=== PATIENT | female | born 1975 | race Asian ===

== ENCOUNTER 2017-03-11 23:30 | Inpatient (IN) | payer BC ==
[~2017-03-11] VITALS: Ht 152.4 cm; Wt 60.5 kg
[~2017-03-11 23:30] MED LIST: FERR325C PO; PREN-39 PO
[2017-03-11 23:57] VITALS: Ht 152.4 cm; Wt 60.5 kg
[2017-03-11 23:58] VITALS: BP 117/71; PULSE 96; RESP 18
[2017-03-12] MEDS ORDERED: LACTATED RINGER'S 1,000 ML IV PRN
[2017-03-12] MEDS ORDERED: OXYTOCIN 30 UNITS/LR 500 ML IV SCH ×3 (00:30→08:30)
[2017-03-12] MEDS ORDERED: LIDOCAINE 1% (MPF) 30 ML INJ INJ PRN (00:30)
[2017-03-12] MEDS ORDERED: CARBOPROST 250 MCG INJ IM PRN ×2 (00:30→11:30)
[2017-03-12] MEDS ORDERED: BUTORPHANOL 2 MG INJ IV PRN ×2 (00:30)
[2017-03-12] MEDS ORDERED: MISOPROSTOL 200 MCG TAB PR PRN ×2 (00:30→11:30)
[2017-03-12] MEDS ORDERED: ACETAMINOPHEN/CODEINE #3 TAB PO PRN (00:30)
[2017-03-12] MEDS ORDERED: OXYTOCIN 30 UNITS/LR 500 ML IV PRN ×2 (00:30→11:30)
[2017-03-12] MEDS ORDERED: METHYLERGONOVINE 0.2 MG INJ IM PRN ×2 (00:30→11:30)
[2017-03-12] MEDS ORDERED: IBUPROFEN 600 MG TAB PO PRN (00:30)
[2017-03-12 00:45] VITALS: BP 107/68; PULSE 81; RESP 18
[2017-03-12] MEDS: LACTATED RINGER'S 1,000 ML IV SCH ×2 (00:48→08:31)
[2017-03-12] MEDS ORDERED: CLINDAMYCIN 900 MG/D5W (PMX) 50 ML IVPB ONE (00:53)
[2017-03-12 00:54] LABS: ADD SCAN DIFF NO
[2017-03-12 00:56] LABS: BASOPHILS % 0.3 % (0.0-2.0); EOSINOPHILS # 0.1 10^3/ul (0.0-0.5); EOSINOPHILS % 1.1 % (0.0-7.0); HEMOGLOBIN 11.4 g/dl (12.0-16.0); LYMPHOCYTES # 1.8 10^3/ul (0.8-2.9); LYMPHOCYTES % 16.3 % (15.0-51.0); MEAN CORPUSCULAR HEMOGLOBIN 27.9 pg (29.0-33.0); MEAN CORPUSCULAR HGB CONC 32.6 g/dl (32.0-37.0); MEAN CORPUSCULAR VOLUME 85.6 fl (82.0-101.0); MONOCYTE # 0.9 10^3/ul (0.3-0.9); MONOCYTES % 8.3 % (0.0-11.0); NEUTROPHIL # 8.1 10^3/ul (1.6-7.5); NEUTROPHILS % 72.7 % (39.0-77.0); PLATELET COUNT 241 10^3/UL (140-415); RED BLOOD COUNT 4.09 10^6/ul (4.20-5.40); RED CELL DISTRIBUTION WIDTH 15.8 % (11.5-14.5); WHITE BLOOD COUNT 11.1 10^3/ul (4.8-10.8)
[2017-03-12 01:01] LABS: ADD UMIC YES; UR ASCORBIC ACID NEGATIVE (NEGATIVE); UR BILIRUBIN (Dip) NEGATIVE (NEGATIVE); UR BLOOD (Dip) 1+ mg/dL (NEGATIVE); UR CLARITY CLEAR (CLEAR); UR COLOR COLORLESS (YELLOW); UR GLUCOSE (Dip) NEGATIVE (NEGATIVE); UR KETONES (Dip) NEGATIVE (NEGATIVE); UR LEUKOCYTE ESTERASE (Dip) NEGATIVE Leu/ul (NEGATIVE); UR NITRITE (Dip) NEGATIVE (NEGATIVE); UR RBC 0 /HPF (0-5); UR SPECIFIC GRAVITY (Dip) 1.004 (1.003-1.030); UR TOTAL PROTEIN (Dip) NEGATIVE (NEGATIVE); UR UROBILINOGEN (Dip) NEGATIVE (NEGATIVE)
--- NOTE | 2017-03-12 01:08 | TRIAGE ---
OB Triage Datetime Report Generated by CPN: 03/12/2017 01:07 Datetime: 03/12/2017 01:02 Assessment Type: Admission Assessment Vaginal Bleeding: None Maternal Assessment Level of Consciousness: Fully Conscious DTR's/Clonus: DTRs 2+; No Clonus Headache: Denies Blurred Vision: No Respiratory Effort: Unlabored; Regular Rhythm; Equal Expansion Breath Sounds, Left: Clear and Equal Breath Sounds, Right: Clear and Equal Nausea/Vomiting: Denies RUQ Epigastric Pain: Denies Lower Extremities Edema: None Degree: None Upper Extremities Edema: None Degree: None Facial Edema: None Fall Risk Assessment History of Falling: (0) No Secondary Diagnosis: (0) No Ambulatory Aid: (0) Bedrest/Nurse Assist IV Therapy: (20) Yes Gait: (0) Normal/Bedrest/Immobile Mental Status: (0) Oriented to Own Ability Fall Score: 20 Fall Risk Score Definition: No Risk: No action required Labor Evaluation Frequency: 1-4 Duration (sec)2399: 60-180 Quality: Moderate Pattern: Normal: <= 5 Contractions in 10 Minutes Resting Tone [place]: Relaxed Heart Rate FHR Baseline Rate: 135 Variability: Moderate 6-25 bpm Accelerations: 15X15 Decelerations: None Category: Category I Pain Assessment Pain Scale: 7 Pain Presence: Intermittent Pain Type: Contraction Pain Location: Abdomen Pain Goal: 4 Membrane Status: Ruptured Membranes Ruptured Date/Time: 03/11/2017 21:30 Membranes Rupture Method: Spontaneous Amniotic Fluid Color: Clear Amniotic Fluid Amount: Small Amniotic Fluid Odor: None Datetime: 03/12/2017 00:35 Time of Arrival: 03/12/2017 00:35 EGA: 39.6 Arrived By: Wheelchair Arrived From: TRIAGE Datetime: 03/12/2017 00:28 Labor Evaluation Frequency: 0 Monitor Mode: External Heart Rate FHR Baseline Rate: 145 Monitor Mode: External US FHR Baseline Changes: No Baseline Change Variability: Moderate 6-25 bpm Accelerations: 15X15 Decelerations: None Category: Category I Datetime: 03/12/2017 00:20 Stage of : OB Triage Datetime: 03/11/2017 23:53 Stage of : OB Triage Time of Arrival: 03/11/2017 23:31 EGA: 39.5 Arrived By: Wheelchair Arrived From: Home Chief Complaint: ROM Movement: Present Contractions: Regular Time Contractions Began: 03/11/2017 21:30 Rupture of Membranes: Ruptured Vaginal Bleeding: None Vaginal Discharge: Present Recent Sexual Intercouse: Denies Abdominal Trauma: Not Applicable Patient Complaints: None Time Provider Notified: 03/11/2017 00:00 Provider Notified: DR ELMORE Initial Plan: CALL MD EFM Maternal Assessment Level of Consciousness: Fully Conscious DTR's/Clonus: DTRs 2+; No Clonus Headache: Denies Blurred Vision: No Respiratory Effort: Unlabored; Regular Rhythm; Equal Expansion Breath Sounds, Left: Clear and Equal Breath Sounds, Right: Clear and Equal Nausea/Vomiting: Denies RUQ Epigastric Pain: Denies Lower Extremities Edema: None Degree: None Upper Extremities Edema: None Degree: None Facial Edema: None Temperature Route: Oral Fall Risk Assessment History of Falling: (0) No Secondary Diagnosis: (0) No Ambulatory Aid: (0) Bedrest/Nurse Assist IV Therapy: (0) No Gait: (0) Normal/Bedrest/Immobile Mental Status: (0) Oriented to Own Ability Fall Score: 0 Fall Risk Score Definition: No Risk: No action required Monitor Mode: External Monitor Mode: External US Pain Assessment Pain Scale: 6 Pain Presence: Intermittent Pain Type: Contraction Pain Location: Abdomen; Back Datetime: 03/11/2017 23:38 Vaginal Exam Dilatation (cms): 4.0 Effacement (%): 70 Station: -3 Exam By: Ni BOOGIE RN Vaginal Bleeding: None Cervix, Consistency: Firm Cervix, Position: Posterior Presentation 'A': Cephalic Datetime: 03/07/2017 23:33 EGA: 39.1 Membranes Ruptured Date/Time: 03/11/2017 21:30 Amniotic Fluid Color: Clear Amniotic Fluid Amount: Moderate Amniotic Fluid Odor: None Datetime: 03/07/2017 22:53 Fall Score: 0 Fall Risk Score Definition: No Risk: No action required
[2017-03-12 01:18] LABS: INR 0.91; PROTIME 12.2 Sec (12.2-14.2)
[2017-03-12 01:19] LABS: PARTIAL THROMBOPLASTIN TIME 29.1 Sec (25.0-35.0)
[2017-03-12 01:22] LABS: ALANINE AMINOTRANSFERASE 19 IU/L (13-69); ALBUMIN 3.6 g/dl (3.3-4.9); ALKALINE PHOSPHATASE 168 IU/L (42-121); ANION GAP 19 (8-16); ASPARTATE AMINO TRANSFERASE 17 IU/L (15-46); BILIRUBIN,INDIRECT 0.2 mg/dl (0-1.1); BILIRUBIN,TOTAL 0.2 mg/dl (0.2-1.3); BLOOD UREA NITROGEN 8 mg/dl (7-20); CALCIUM 9.3 mg/dl (8.4-10.2); CARBON DIOXIDE 21 mmol/L (21-31); CHLORIDE 102 mmol/L (97-110); CREATININE 0.44 mg/dl (0.44-1.00); GLUCOSE 88 mg/dl (70-220); POTASSIUM 3.6 mmol/L (3.5-5.1); SODIUM 138 mmol/L (135-144); TOTAL PROTEIN 7.2 g/dl (6.1-8.1)
[2017-03-12] MEDS ORDERED: FENTAnyl 2MCG/ML-ROPIV 0.2% 100 ML ONE (01:24)
[2017-03-12 02:44] LABS: BARBITURATES Negative (NEGATIVE); BENZODIAZEPINES Negative (NEGATIVE); CANNABINOIDS Negative (NEGATIVE); COCAINE Negative (NEGATIVE); OPIATES Negative (NEGATIVE)
[2017-03-12] MEDS ORDERED: CLINDAMYCIN 900 MG/D5W (PMX) 50 ML IV SCH (06:00)
[2017-03-12] MEDS ORDERED: FENTAnyl 2MCG/ML-ROPIV 0.2% 100 ML BAG EPI SCH (07:30)
[2017-03-12] MEDS ORDERED: NALOXONE (0.4 MG/ML) INJ IV PRN (07:30)
--- NOTE | 2017-03-12 09:57 | HP ---
Date/Time of Note Date/Time of Note DATE: 03/12/17 TIME: 09:49 OB - History Hx of Present Free Text/Dictation 41 y.o A 0 present to triage after leaking amniotic fluid at 2100 03/11 initial eaxm 4cm/70/-3 u.c 1-4min apart admitted for expectant management Chief Complaint: rom Estimated Due Date: Mar 13, 2017 : 3 Para: 2 Spontaneous : 0 Therapeutic : 0 Care: Good Care Ultrasounds: Normal mid trimester US Obstetrical Complications: None Medical Complications: None Past Family/Social History * Past Medical, Surgical, Family and Obstetric Histories reviewed from chart. Blood Type: O+ Rubella: immune RPR/VDRL: Negative GBS Status: Negative HBsAG: Negative OB Admission Exam Vital Signs Vital Signs Vital Signs Date Time Temp Pulse Resp B/P Pulse Ox O2 Delivery O2 Flow Rate FiO2 03/12/17 00:45 98.1 81 18 107/68 Room Air Physical Exam HEENT: WNL Heart: Rhythm Normal Lungs: Clear, Equal Abdomen: WNL Extremities: Normal Reflexes: Normal Cervical Dilatation: 4cm Effacement: 75% Station: -3 Membranes: Ruptured Amniotic Fluid: Clear Heart Rate: 130's Accelerations: Accelerations Present Decelerations: No Decelerations Varibility: Moderate Contractions on Admission: < 5 Minutes Apart Intensity: Moderate Last 72 hours Lab Results CBC & BMP 03/12/17 00:30 Liver Function Test 03/12/17 00:30 Alanine Aminotransferase (ALT/SGPT) 19 Albumin 3.6 Alkaline Phosphatase 168 H Aspartate Amino Transf (AST/SGOT) 17 Direct Bilirubin 0.00 Total Protein 7.2 OB Assessment/Plan Reason for admission: active labor, rupture of membranes Plan: Expectant Management ANNI ELMORE MD Mar 12, 2017 09:56
--- NOTE | 2017-03-12 10:00 | LDN ---
Date/Time of Note Date/Time of Note DATE: 03/12/17 TIME: 09:57 Delivery Summary Weeks of Gestation 39w6d Placenta Delivered: Spontaneously Meconium: none Episiotomy: No Laceration repair: vaginal laceration Anesthesia type: Epidural Estimated blood loss: 200 Sponge & Needle done & correct: Yes All needle counts correct: Yes Any foreign bodies felt in the: No Problems: Delivery Information Sex Sex: female Apgars 1 Minute: 8 5 Minute: 9 Suctioning Nose & mouth suctioned at jameel: Yes Delee suction performed: No Umbilical Cord Umbilical cord with: 3 Vessels Cord presentations: nuchal cord Nuchal cord present X: 1 Cord Blood was obtained: Yes Mother & Baby Disposition Disposition Mom & Baby to Maternity; Good: Yes Mom transferred to: Other (postpaartum) Baby to NICU: No ANNI ELMORE MD Mar 12, 2017 09:59
[2017-03-12] MEDS ORDERED: WITCH HAZEL/GLYCERIN PAD PR PRN (11:30)
[2017-03-12] MEDS ORDERED: ZOLPIDEM 5 MG TAB PO PRN (11:30)
[2017-03-12] MEDS ORDERED: BENZOCAINE 20% 56 ML SPRAY TOP PRN (11:30)
[2017-03-12] MEDS ORDERED: OXYCODONE/ASPIRIN (4.88/325) TAB PO PRN ×2 (11:30)
[2017-03-12] MEDS ORDERED: LANOLIN 7 GM TUBE TOP PRN (11:30)
[2017-03-12 11:50] VITALS: BP 118/66; PULSE 84; RESP 20
[2017-03-12] MEDS: IBUPROFEN 600 MG TAB PO SCH ×2 (11:51→18:23)
[2017-03-12 12:20] VITALS: BP 118/70; PULSE 80; RESP 20
[2017-03-12 16:00] VITALS: BP 100/59; PULSE 75; RESP 19
[2017-03-12 20:25] VITALS: BP 112/77; PULSE 77; RESP 18
[2017-03-12] MEDS: SENNA/DOCUSATE NA (8.6MG/50MG) TAB PO SCH (20:29)
[2017-03-13 00:25] VITALS: BP 114/77; PULSE 79; RESP 18
[2017-03-13 04:00] VITALS: BP 98/50; PULSE 71
[2017-03-13] MEDS: IBUPROFEN 600 MG TAB PO SCH ×4 (06:00→18:20)
[2017-03-13 08:33] LABS: ADD SCAN DIFF NO
[2017-03-13 08:38] LABS: BASOPHIL # 0.1 10^3/ul (0.0-0.1); BASOPHILS % 0.4 % (0.0-2.0); EOSINOPHILS # 0.2 10^3/ul (0.0-0.5); EOSINOPHILS % 1.3 % (0.0-7.0); HEMOGLOBIN 11.5 g/dl (12.0-16.0); LYMPHOCYTES # 1.7 10^3/ul (0.8-2.9); LYMPHOCYTES % 15.1 % (15.0-51.0); MEAN CORPUSCULAR HEMOGLOBIN 28.8 pg (29.0-33.0); MEAN CORPUSCULAR HGB CONC 32.9 g/dl (32.0-37.0); MEAN CORPUSCULAR VOLUME 87.5 fl (82.0-101.0); MONOCYTE # 0.8 10^3/ul (0.3-0.9); MONOCYTES % 6.9 % (0.0-11.0); NEUTROPHIL # 8.6 10^3/ul (1.6-7.5); NEUTROPHILS % 75.2 % (39.0-77.0); PLATELET COUNT 234 10^3/UL (140-415); RED CELL DISTRIBUTION WIDTH 15.9 % (11.5-14.5); WHITE BLOOD COUNT 11.4 10^3/ul (4.8-10.8)
[2017-03-13] MEDS: SENNA/DOCUSATE NA (8.6MG/50MG) TAB PO SCH ×2 (08:53→20:44)
[2017-03-13 09:00] VITALS: BP 111/78; PULSE 80; RESP 20
--- NOTE | 2017-03-13 10:33 | PN ---
Date/Time of Note Date/Time of Note DATE: 03/13/17 TIME: 10:21 OB Subjective Subjective Subjective no c/o OB Objective Objective Objective vss afebrle fundus firm lochia min calf neg for tenderness OB Assessment/Plan Other Assessment: post vaginal delivery #1 Other plan: discharge home in am ANNI ELMORE MD Mar 13, 2017 10:32
[2017-03-13 11:34] LABS: RUBELLA ANTIBODY - IGG 7.02 index
[2017-03-13 16:00] VITALS: BP 97/59; PULSE 68; RESP 16
[2017-03-13 19:30] VITALS: BP 108/70; PULSE 77; RESP 18
[2017-03-14] MEDS: IBUPROFEN 600 MG TAB PO SCH ×3 (00:30→12:10)
[2017-03-14 03:45] VITALS: BP 109/67; PULSE 70; RESP 18
--- NOTE | 2017-03-14 07:48 | PD.PPDC ---
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
--- NOTE | 2017-03-14 07:50 | DS ---
Date/Time of Note Date/Time of Note DATE: 03/14/17 TIME: 07:49 Obstetrical Discharge Record Final Diagnosis Final Diagnosis: Term delivered Vaginal Delivery Obstetrical Delivery: Spontaneous, Laceration, Repaired Complications Augmentation: No Induction: No Condition on Discharge Physical Assessment Last Vitals: vss afebrile Voiding: Yes Bowel Movement: Yes Breast: Soft, non-tender Fundus: Firm Calf Tenderness: No Patient Condition: Stable ANNI ELMORE MD Mar 14, 2017 07:50
[2017-03-14 08:55] VITALS: BP 126/68; PULSE 70; RESP 16
[2017-03-14] MEDS ORDERED: DIPHTH/TET/ACEL PERTUSS (ADULT) 0.5 ML VIAL IM* ONE (09:00)
[2017-03-14] MEDS: SENNA/DOCUSATE NA (8.6MG/50MG) TAB PO SCH (10:17)
== END 2017-03-14 13:45 | disposition home or self-care (01) | DRG 775 ==
LOC: OBT 23:30 → L-D 23:30 → OBT 03-12 → PP1 03-12 11:41
PROVIDERS: ADMIT Obstetrics & Gynecology; ATTEND Obstetrics & Gynecology
PROC: 10E0XZZ Delivery of Products of Conception, External Approach (ICD-10-PCS; principal; 2017-03-12)
PROC: 0UQGXZZ Repair Vagina, External Approach (ICD-10-PCS; 2017-03-12)
DX: O69.81X0 Labor and delivery complicated by cord around neck, without compression, not applicable or unspecified (principal); O71.4 Obstetric high vaginal laceration alone; Z3A.39 39 weeks gestation of pregnancy; Z37.0 Single live birth
CPT/HCPCS: 62319; 80053; 80307; 81001; 85025; 85610; 85730; 86592; 86762; 86900; 86901; 87086; 87340; 90715; G0463; J2590; J3010; J7120